=== PATIENT | female | born 1985 | race Asian ===

== ENCOUNTER 2021-12-01 12:00 | Outpatient (CLI) | payer BC ==
[~2021-12-01] VITALS: Ht 160 cm; Wt 54.9 kg
== END 2021-12-01 14:50 | disposition home or self-care (01) ==
LOC: SLB 12:00 → EDSTATUS 12-02 07:30
PROVIDERS: ATTEND Obstetrics & Gynecology
DX: U07.1 COVID-19 (principal); Z01.812 Encounter for preprocedural laboratory examination; N87.0 Mild cervical dysplasia
CPT/HCPCS: 36415; U0003

== ENCOUNTER 2021-12-23 05:33 | Day surgery (SDC) | payer BC ==
[~2021-12-23] VITALS: Ht 160 cm; Wt 54.9 kg
[2021-12-23 06:06] LABS: HCG,QUAL RESULT NEGATIVE (NEGATIVE)
[2021-12-23] MEDS ORDERED: ONDANSETRON HCL 4 MG/2 ML VIAL IVP ONE (09:30)
[2021-12-23] MEDS ORDERED: DEXAMETHASONE SOD PHOSPHATE 4 MG/ML VIAL IVP ONE (09:30)
[2021-12-23] MEDS ORDERED: SEVOFLURANE 15 MIN GAS INH ONE (09:30)
[2021-12-23] MEDS ORDERED: NS IRRIG SOLN 1000 ML IR ONE (09:30)
[2021-12-23] MEDS ORDERED: MIDAZOLAM HCL 5 MG/5 ML VIAL IVP ONE (09:30)
[2021-12-23] MEDS ORDERED: LR 1,000 ML IV.SOLN IV ONE (09:30)
[2021-12-23] MEDS ORDERED: PROPOFOL 200MG/ 20ML VIAL (DIPRIVAN) IV ONE (09:30)
[2021-12-23] MEDS ORDERED: fentaNYL CITRATE/PF 100 MCG/2 ML AMP IVP ONE (09:30)
[2021-12-23] MEDS ORDERED: ACETAMINOPHEN/CODEINE 300 MG-30 MG TABLET PO PRN (09:45)
[2021-12-23] MEDS ORDERED: HYDROmorphone 1 MG/ML INJ. CARTRIDGE IVP PRN ×2 (09:45)
[2021-12-23] MEDS ORDERED: METOCLOPRAMIDE HCL 10 MG/2 ML VIAL IVP PRN (09:45)
[2021-12-23] MEDS ORDERED: LR 1,000 ML IV SCH (09:45)
[2021-12-23] MEDS ORDERED: ONDANSETRON HCL 4 MG/2 ML VIAL IVP PRN (09:45)
[2021-12-23] MEDS ORDERED: MORPHINE 4 MG INJ. 4 MG/ML VIAL IVP PRN (09:45)
[2021-12-23] MEDS ORDERED: IBUPROFEN 800 MG TABLET PO PRN (09:45)
[2021-12-23] MEDS ORDERED: MEPERIDINE HCL/PF 25 MG/ML DISP.SYRIN IVP PRN (09:45)
[2021-12-23 13:13] VITALS: BP_SYST 133
== END 2021-12-23 12:00 | disposition home or self-care (01) ==
LOC: SDS 05:33
PROVIDERS: ATTEND Obstetrics & Gynecology
DX: N87.1 Moderate cervical dysplasia (principal); N72 Inflammatory disease of cervix uteri; Z79.899 Other long term (current) drug therapy; Z20.822 Contact with and (suspected) exposure to COVID-19
CPT/HCPCS: 57522; 84703; 36415; 88305; 88307; 87426; J1100; J2250; J2405; J2704; J3010; J7120